=== PATIENT | female | born 1940 | race Caucasian/White ===

== ENCOUNTER 2016-10-18 16:48 | Inpatient (IN) | payer MEDICARE, OTHER ==
[~2016-10-18] VITALS: Ht 160 cm; Wt 76.9 kg
[~2016-10-18 16:48] MED LIST: ALPHAGAN BOTH EYES; AMLO1CAP33 PO; AZOPT 1% BOTH EYES; BENA1TAB13 PO; BRIMONIDINE; EYE BOTH EYES; GLIM4TAB PO; LEVO50TA64 PO; TAFL1DRO RIGHT EYE; TIOT18CA; VENTOLIN
[2016-10-18] MEDS ORDERED: VANCOMYCIN 1 GM (PMX) 250 ML IVPB STA (18:02)
[2016-10-18] MEDS ORDERED: CEFEPIME 1GM/50 ML (PMX) 50 ML IVPB STA (18:02)
--- NOTE | 2016-10-18 18:24 | RADRPT ---
PROCEDURE: XR Chest 1 View. CLINICAL INDICATION: Shortness of breath. TECHNIQUE: AP view of the chest was obtained. COMPARISON: CR CHEST 02/17/2013 FINDINGS: The heart size is within normal limits. Calcified atherosclerosis is noted in the aorta. Elevated l eft hemidiaphragm is identified. Patchy atelectasis versus infiltrates are identified in the left lo wer lobe. Calcified granuloma is seen in the right upper lobe. Osseous structures are intact. IMPRESSION: Calcified atherosclerosis in the aorta. Patchy atelectasis versus infiltrates in the left lower lobe. Elevated left hemidiaphragm. Calcified granuloma in the right upper lobe. RPTAT: AA .Sachin Meyers MD, MD Date Time Electronically viewed and signed by .Sachin Meyers MD, on 10/18/2016 18:24 .P/
[2016-10-18] MEDS ORDERED: BENA1TAB13 PO (18:26)
[2016-10-18] MEDS ORDERED: ATOR40TA68 PO (18:27)
[2016-10-18] MEDS ORDERED: LEVO100T87 PO (18:27)
[2016-10-18] MEDS ORDERED: AMLO2.5T78 PO (18:27)
[2016-10-18 18:30] LABS: BASOPHILS % 0.3 % (0.0-2.0); EOSINOPHILS # 0.1 10^3/ul (0.0-0.5); EOSINOPHILS % 0.4 % (0.0-7.0); HEMATOCRIT 40.7 % (37.0-47.0); HEMOGLOBIN 14.1 g/dl (12.0-16.0); LYMPHOCYTES # 0.6 10^3/ul (0.8-2.9); LYMPHOCYTES % 5.5 % (15.0-51.0); MEAN CORPUSCULAR HEMOGLOBIN 31.5 pg (29.0-33.0); MEAN CORPUSCULAR HGB CONC 34.6 g/dl (32.0-37.0); MEAN CORPUSCULAR VOLUME 91.1 fl (82.0-101.0); MEAN PLATELET VOLUME 9.6 fl (7.4-10.4); MONOCYTE # 0.3 10^3/ul (0.3-0.9); MONOCYTES % 2.2 % (0.0-11.0); PLATELET COUNT 214 10^3/UL (140-415); RED BLOOD COUNT 4.47 10^6/ul (4.20-5.40); RED CELL DISTRIBUTION WIDTH 13.3 % (11.5-14.5); WHITE BLOOD COUNT 11.5 10^3/ul (4.8-10.8)
[2016-10-18] MEDS ORDERED: TIOT18CA INHALATION (18:37)
[2016-10-18] MEDS ORDERED: METF500T4 PO (18:37)
[2016-10-18] MEDS ORDERED: GLIM2TAB PO (18:39)
[2016-10-18] MEDS ORDERED: DAPA5TAB PO (18:40)
[2016-10-18] MEDS ORDERED: ALBU18HF INHALATION (18:41)
[2016-10-18] MEDS ORDERED: TAFL1DRO RIGHT EYE (18:43)
[2016-10-18] MEDS ORDERED: AZOP1OP10 BOTH EYES (18:45)
[2016-10-18 18:49] LABS: CALCIUM 10.3 mg/dl (8.4-10.2); CREATININE 0.74 mg/dl (0.44-1.00); POTASSIUM 5.1 mmol/L (3.5-5.1)
[2016-10-18] MEDS ORDERED: ALBUTEROL 0.083% (NEB) 2.5 MG/3 ML AMP NEB STA (19:44)
[2016-10-18] MEDS ORDERED: IPRATROPIUM (NEB) 0.5 MG/2.5 ML AMP NEB STA (19:44)
--- NOTE | 2016-10-18 20:23 | ERA ---
ER Documentation Chief Complaint Date/Time DATE: 10/18/16 TIME: 20:21 Chief Complaint sob, dx pna send by pmd HPI This a pleasant 75-year-old female has had a cough for 2 weeks she says is dry and getting worse. He has a history of COPD and she states that she had asthma as a child. She states that she had a cold that went into her chest and she is unable to shake it. She says she had occasional chills but no documented fever. She has some wheezing shortness of breath off-and-on for the past 10 days. No substernal chest pain. The patient saw her primary care physician was sent for chest x-ray then called when she got home and was told she had left lower lobe pneumonia need to come the hospital for admission. The patient' s physician had wrote some admitting orders and sent him in. ROS All systems reviewed and are negative except as per history of present illness. Medications Home Meds Reported Medications Brinzolamide (Azopt) 10 Ml Drops.susp, 1 DROP BOTH EYES BID 10/18/16 Tafluprost/Pf (ZIOPTAN 0.0015% EYE DROPS) 1 Each Droperette, 1 EACH RIGHT EYE QHS 10/18/16 Albuterol Sulfate* (Ventolin HFA*) 18 Gm Hfa.aer.ad, 2 PUFF INHALATION Q4H, #1 INHALER 10/18/16 Dapagliflozin Propanediol (Farxiga) 5 Mg Tablet, 5 MG PO DAILY, #30 TAB 10/18/16 Glimepiride* (Glimepiride*) 2 Mg Tablet, 2 MG PO WITH BREAKFAST DINNE, TAB 10/18/16 Tiotropium [place]* (Spiriva*) 18 Mcg Cap.w.dev, 1 CAP INHALATION DAILY, #30 CAP 10/18/16 Metformin Hcl* (Metformin Hcl*) 500 Mg Tablet, 500 MG PO WITH BREAKFAST DINNE, # 60 TAB 10/18/16 Atorvastatin* (Atorvastatin*) 40 Mg Tablet, 40 MG PO QHS, #30 TAB 10/18/16 Levothyroxine Sodium* (Levothyroxine Sodium*) 100 Mcg Tablet, 100 MCG PO BEFORE BREAKFAST, #30 TAB 10/18/16 Amlodipine Besylate* (Amlodipine Besylate*) 2.5 Mg Tablet, 2.5 MG PO DAILY, #30 TAB 10/18/16 Benazepril-Hydrochlorothiazide (Benazepril-Hydrochlorothiazide) 20-12.5 Mg Tablet, 1 TAB PO BID, #30 TAB 10/18/16 Discontinued Reported Medications Tafluprost/Pf (ZIOPTAN 0.0015% EYE DROPS) 1 Each Droperette, 1 EACH RIGHT EYE HS , #1 02/17/13 [alphagan 1%] No Conflict Check, DROP BOTH EYES, #1 02/17/13 Tafluprost/Pf (ZIOPTAN 0.0015% EYE DROPS) 1 Each Droperette, 1 RIGHT EYE HS 02/17/13 [Aphagan] No Conflict Check 02/17/13 [Azopt 1% EYE DROPS] No Conflict Check, 2 BOTH EYES BID 02/17/13 Levothyroxine Sodium (Levothroid) 50 Mcg Tablet, 50 MCG PO DAILY 02/17/13 Amlodipine-Benazepril (Amlodipine-Benazepril) 1 Cap Capsule, 2.5 MG PO DAILY 02/17/13 [Ventolin] No Conflict Check, PRN 02/17/13 Tiotropium [place]* (Spiriva*) 18 Mcg Cap.w.dev, 1 PUFF PRN, 0 Refills 02/17/13 Glimepiride* (Glimepiride*) 4 Mg Tablet, 4 MG PO BID 02/17/13 Benazepril-Hydrochlorothiazide (Benazepril-Hydrochlorothiazide) 1 Each Tablet, PO BID 02/17/13 Allergies Allergies: Coded Allergies: No Known Allergy (Unverified , 10/18/16) PMhx/Soc 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) Anesthesia Reaction: No Hx Neurological Disorder: No Hx Respiratory Disorders: Yes (asthma) Hx Cardiac Disorders: No Hx Psychiatric Problems: No Hx Miscellaneous Medical Probl: Yes (fx leg) Hx Alcohol Use: No Hx Substance Use: No Hx Tobacco Use: Yes (21 yrs ago) Smoking Status: Former smoker FmHx Family History: No coronary disease Physical Exam Vitals Vital Signs Date Time Temp Pulse Resp B/P Pulse Ox O2 Delivery O2 Flow Rate FiO2 10/18/16 20:00 98.9 88 18 119/63 96 Room Air 3.0 10/18/16 19:58 83 20 96 Nasal Cannula 3.0 10/18/16 18:02 Nasal Cannula 3 10/18/16 17:44 99.0 102 20 109/85 94 Room Air 3.0 10/18/16 17:44 Nasal Cannula 3.0 10/18/16 16:54 100.7 110 18 111/59 90 Physical Exam Const: Well-developed, well-nourished Head: Atraumatic, normocephalic Eyes: Normal Conjunctiva, PERRLA, EOMI, normal sclera, no nystagmus ENT: Normal External Ears, Nose and Mouth, moist mucus membranes. Neck: Full range of motion. No meningismus, no lymphadenopathy. Resp: [Decreased breath sounds bilaterally consistent with COPD, left lower lobe has some rhonchi cardio: Regular rate and rhythm, no murmurs, S1 S2 present Abd: Soft, non tender x 4, non distended. Normal bowel sounds, no guarding or rebound, no pulsitile abdominal masses or bruits Skin: No petechiae or rashes, no ecchymosis , no maculopapular rash Back: No midline or flank tenderness Ext: No cyanosis, or edema, FROM x 4, normal inspection, neurovascularly intact x 4 Neur: Awake and alert, STR 5/5 x 4, sensation intact x 4, no focal findings, cerebellum intact Psych: Normal Mood and Affect Result Diagram: 10/18/16180410/18/161804 Results 24 hrs Laboratory Tests Test 10/18/16 18:05 White Blood Count 11.510^3/ul Red Blood Count 4.4710^6/ul Hemoglobin 14.1g/dl Hematocrit 40.7% Mean Corpuscular Volume 91.1fl Mean Corpuscular Hemoglobin 31.5pg Mean Corpuscular Hemoglobin Concent 34.6g/dl Red Cell Distribution Width 13.3% Platelet Count 47977^3/UL Mean Platelet Volume 9.6fl Neutrophils % 91.0% Lymphocytes % 5.5% Monocytes % 2.2% Eosinophils % 0.4% Basophils % 0.3% Nucleated Red Blood Cells % 0.0/100WBC Neutrophils # (Manual) 10.510^3/ul Lymphocytes # 0.610^3/ul Monocytes # 0.310^3/ul Eosinophils # 0.110^3/ul Basophils # 0.010^3/ul Nucleated Red Blood Cells # 0.010^3/ul Sodium Level 138mmol/L Potassium Level 5.1mmol/L Chloride Level 99mmol/L Carbon Dioxide Level 27mmol/L Anion Gap 17 Blood Urea Nitrogen 21mg/dl Creatinine 0.74mg/dl Glucose Level 273mg/dl Calcium Level 10.3mg/dl Current Medications Medications (Trade) Dose Ordered Sig/Lily Route PRN Reason Start Time Stop Time Status Last Admin Dose Admin Cefepime HCl 50 ml @ 100 mls/hr ONCE STAT IVPB 10/18/16 18:02 10/18/16 18:31 DC 10/18/16 18:40 Vancomycin HCl (Vancocin) 250 ml @ 125 mls/hr ONCE STAT IVPB 10/18/16 18:02 10/18/16 20:01 DC 10/18/16 19:21 Albuterol (Proventil 0.083% (Neb)) 7.5 mg ONCE STAT NEB 10/18/16 19:44 10/18/16 19:45 DC 10/18/16 19:58 Ipratropium [place] (Atrovent 0.02% (Neb)) 0.5 mg ONCE STAT NEB 10/18/16 19:44 10/18/16 19:45 DC 10/18/16 19:58 Procedures/MDM PROCEDURE: XR Chest 1 View. CLINICAL INDICATION: Shortness of breath. TECHNIQUE: AP view of the chest was obtained. COMPARISON: CR CHEST 02/17/2013 FINDINGS: The heart size is within normal limits. Calcified atherosclerosis is noted in the aorta. Elevated left hemidiaphragm is identified. Patchy atelectasis versus infiltrates are identified in the left lower lobe. Calcified granuloma is seen in the right upper lobe. Osseous structures are intact. IMPRESSION: Calcified atherosclerosis in the aorta. Patchy atelectasis versus infiltrates in the left lower lobe. Elevated left hemidiaphragm. Calcified granuloma in the right upper lobe. RPTAT: AA .Sachin Meyers MD, Date Time Electronically viewed and signed by .Sachin Meyers MD, on 10/18/2016 18:24 .P/ CC: KACIE FORREST MD Patient had blood cultures IV fluids and given antibiotics cefepime and vancomycin. We will admit to the hospital for IV antibiotics Departure Diagnosis: Primary Impression: Left lower lobe pneumonia Qualified Code: J18.1 - Pneumonia of left lower lobe due to infectious organism Condition: Stable TRAE OLEA DO Oct 18, 2016 20:23
[2016-10-18] MEDS ORDERED: ONDANSETRON 4 MG INJ IV PRN (20:30)
[2016-10-18] MEDS ORDERED: ACETAMINOPHEN 325 MG TAB PO PRN (20:30)
[2016-10-18 21:48] VITALS: TEMP 98.5
[2016-10-18 22:00] VITALS: Ht 160 cm; Wt 76.9 kg
[2016-10-18 22:22] VITALS: PULSE 90
[2016-10-18 23:09] VITALS: BP 120/60; RESP 17
[2016-10-18] MEDS ORDERED: GLUCAGON 1 MG INJ IM PRN (23:45)
[2016-10-18] MEDS ORDERED: DEXTROSE 50% 50 ML SYRINGE IV PRN ×2 (23:45)
[2016-10-18] MEDS ORDERED: GLUCOSE GEL 15 GRAM TUBE PO PRN ×2 (23:45)
[2016-10-18] MEDS ORDERED: GLUCOSE GEL 15 GRAM TUBE BUCCAL PRN (23:45)
[2016-10-19] VITALS (11 sets, daily range): BP systolic 111–165; BP diastolic 58–74; PULSE 66–85; RESP 16–19
[2016-10-19] MEDS ORDERED: MAGNESIUM HYDROXIDE 30ML CUP PO PRN
[2016-10-19] MEDS ORDERED: ZOLPIDEM 5 MG TAB PO PRN
[2016-10-19] MEDS ORDERED: ACETAMINOPHEN 325 MG TAB PO PRN
[2016-10-19] MEDS ORDERED: HYDROCODONE/APAP (5/325) TAB PO PRN (00:30)
[2016-10-19] MEDS ORDERED: GUAIFENESIN/CODEINE 5ML CUP PO PRN (00:30)
[2016-10-19] MEDS ORDERED: ACCU-CHEK XX SCH ×2 (02:00)
[2016-10-19] MEDS: ACCU-CHEK XX SCH ×2 (02:00)
[2016-10-19] MEDS: ALBUTEROL 18 GM INHALER INH SCH ×6 (02:14→21:48)
[2016-10-19] MEDS: LEVOFLOXACIN 500MG/D5W (PMX) 100 ML IVPB SCH (05:41)
[2016-10-19] MEDS: LEVOTHYROXINE 100 MCG TAB PO SCH (06:54)
[2016-10-19 07:40] LABS: BASOPHILS % 0.1 % (0.0-2.0); HEMATOCRIT 38.6 % (37.0-47.0); LYMPHOCYTES # 0.9 10^3/ul (0.8-2.9); LYMPHOCYTES % 9.4 % (15.0-51.0); MEAN CORPUSCULAR HEMOGLOBIN 30.9 pg (29.0-33.0); MEAN CORPUSCULAR HGB CONC 33.7 g/dl (32.0-37.0); MEAN CORPUSCULAR VOLUME 91.7 fl (82.0-101.0); MEAN PLATELET VOLUME 9.5 fl (7.4-10.4); MONOCYTE # 0.4 10^3/ul (0.3-0.9); MONOCYTES % 3.8 % (0.0-11.0); NEUTROPHILS % 85.9 % (39.0-77.0); PLATELET COUNT 207 10^3/UL (140-415); RED BLOOD COUNT 4.21 10^6/ul (4.20-5.40); RED CELL DISTRIBUTION WIDTH 13.2 % (11.5-14.5); WHITE BLOOD COUNT 9.3 10^3/ul (4.8-10.8)
[2016-10-19] MEDS ORDERED: INSULIN ASPART [NOVOLOG] 3 ML PEN SC SCH (08:00)
[2016-10-19] MEDS ORDERED: GLIMEPIRIDE 2 MG TAB PO SCH (08:00)
[2016-10-19 08:09] LABS: ALBUMIN/GLOBULIN RATIO 1.05; BILIRUBIN,INDIRECT 0.3 mg/dl (0-1.1); BILIRUBIN,TOTAL 0.3 mg/dl (0.2-1.3); CALCIUM 10.1 mg/dl (8.4-10.2); CHOL/HDL RATIO 4.3 RATIO; CREATININE 0.57 mg/dl (0.44-1.00); POTASSIUM 4.6 mmol/L (3.5-5.1); TOTAL PROTEIN 7.8 g/dl (6.1-8.1)
[2016-10-19 08:36] LABS: THYROID STIMULATING HORMONE 1.87 MIU/L (0.465-4.680)
[2016-10-19] MEDS: BENAZEPRIL 20 MG TAB PO SCH ×2 (08:47→21:31)
[2016-10-19] MEDS: HYDROCHLOROTHIAZIDE 12.5 MG CAP PO SCH ×2 (08:47→21:32)
[2016-10-19] MEDS: TIOTROPIUM 18 MCG CAPSULE INHA DEV INH SCH (08:48)
[2016-10-19] MEDS: AMLODIPINE 2.5 MG TAB PO SCH (08:48)
[2016-10-19] MEDS: metFORMIN 500 MG TAB PO SCH ×2 (08:49→17:49)
[2016-10-19] MEDS: INSULIN ASPART [NOVOLOG] 3 ML PEN SC SCH ×4 (08:52→21:42)
[2016-10-19] MEDS: BRINZOLAMIDE 1% 10ML OPH BOTH EYES SCH ×2 (09:00→21:34)
[2016-10-19] MEDS ORDERED: NON-FORMULARY/PATIENT OWN MED (Dapagliflozin Propanediol (Farxiga) 5 MG) PO SCH (09:00)
--- NOTE | 2016-10-19 11:42 | RADRPT ---
PROCEDURE: CT Chest without contrast. CLINICAL INDICATION: Pneumonia. Cough. TECHNIQUE: CT scan of the chest without contrast was performed on a multidetector high-resolution CT scanner. Coronal and sagittal reformatted images were obtained from the axial source images. The total exam CTDI equals 13.72 mGy and the total exam DLP equals 570.87 mGy-cm. One or more of the following dose reduction techniques were used: - Automated exposure control. - Adjustment of the mA and/or kV according to patient size. - Use of iterative reconstruction technique. COMPARISON: CT scan chest 02/18/2013; chest x-ray 10/18/2016 FINDINGS: Dense patchy consolidation is seen within the left lower lung consistent with pneumonia. There is as ymmetric elevation of the left hemidiaphragm. No pleural effusion is seen. Minimal scattered inflamm atory bronchiolitis is seen within the superior segment of the left lower lung, and within the left upper lung. Several scattered calcified granulomata are seen within the lungs bilaterally as well. N o soft tissue mass lesion is seen. Linear scarring is seen in the right lung base and right middle l obe. Lung apices are clear. There is no pneumothorax. The central tracheobronchial tree is clear. The mediastinum is unremarkable without lymphadenopathy. Small shoddy sub-centimeter nodes only are seen, not enlarged by size criteria. The vascular structures of the mediastinum are normal in cours e and caliber. Aortic vascular calcifications and coronary artery calcifications are present. The heart size is normal without evidence for pericardial thickening or effusion. The axillary regions, subpectoral regions, and supraclavicular regions are all unremarkable. The antonio rrounding chest wall is unremarkable. Imaging obtained through the upper abdomen reveals no acute a bnormality. There is a small 1.4 cm hypodense nodule within the right adrenal gland consistent with a benign adrenal adenoma. This is stable when compared to the prior study and is benign. The surrou nding osseous structures are remarkable for degenerative enthesopathy of the spine. No osteolytic o r osteoblastic lesion is detected. IMPRESSION: 1. Dense consolidation throughout the left lower lung consistent with pneumonia. 2. Mild inflammatory bronchiolitis within the left upper lung as well. 3. Scattered calcified granulomata within the lungs bilaterally. 4. Vascular calcifications consistent with atherosclerosis. 5. Stable benign right adrenal adenoma. RPTAT: HMJB .Anant Beth MD, MD Date Time Electronically viewed and signed by .Anant Beth MD, MD on 10/19/2016 11:41 .B/
[2016-10-19] MEDS: FARXIGA IS NON FORMULARY ITEM...PLEASE CONSIDER AN ORDER TO USE PATIENT'S OWN MED XX SCH ×2 (13:30→21:30)
[2016-10-19] MEDS: [UNRECOGNIZED DRUG - REMARK] XX SCH ×2 (13:30→21:30)
--- NOTE | 2016-10-19 17:32 | HP ---
Date/Time of Note Date/Time of Note DATE: 10/19/16 TIME: 17:32 Assessment/Plan VTE Prophylaxis VTE Prophylaxis Intervention: ambulation Lines/Catheters IV [facility] Saline Lock Urinary Cath still in place: No Assessment/Plan Problems: (1) COPD exacerbation Status: Acute Comment: Start steroid IV and Xopenex nebulizer. Continue spiriiva and oxygen support for now (2) Diabetes Status: Chronic Comment: continue current oral diabetic medicine. expect worsening of blood sugar with the use of steroids. Add accuchecks and cover with insulin sliding scale (3) Left lower lobe pneumonia Status: Acute Comment: start Levaquin IV. Check blood cultures and sputum cultures. Qualifiers: Pneumonia type: due to unspecified organism Qualified Code: J18.1 - Pneumonia of left lower lobe due to infectious organism HPI/ROS Admit Date/Time Admit Date/Time Oct 18, 2016 at 20:24 Hx of Present Illness 75-year-old female with history of COPD presents with SOB and cough for 3 weeks. it's progressive nature and associated with Mild fever, no chills. PMH/Family/Social Past Medical History Medical History: diabetes, high cholesterol, hypertension, hypothyroid, other Family History Significant Family History: no pertinent family hx Social History Alcohol Use: rarely Smoking Status: Former smoker Exam/Review of Systems Vital Signs Vitals Vital Signs Date Time Temp Pulse Resp B/P Pulse Ox O2 Delivery O2 Flow Rate FiO2 10/19/16 16:27 77 10/19/16 12:15 98.1 19 126/59 94 10/19/16 07:45 Nasal Cannula 3.0 Intake and Output 10/18/16 10/18/16 10/19/16 15:00 23:00 07:00 Intake Total 500 ml Balance 500 ml Exam Constitutional: alert, oriented Head: atraumatic, normocephalic Eyes: nl conjunctiva, nl sclera ENMT: nl external ears & nose Respiratory: congested cough, diminished breath sounds Cardiovascular: nl pulses, regular rate and rhythm Gastrointestinal: nl liver, spleen, non-tender, soft Musculoskeletal: nl extremities to inspection Extremities: normal pulses Lymph: nl lymph nodes Labs Result Diagram: 10/19/16 0714 10/19/16 0714 Medications Medications Current Medications Amlodipine Besylate (Norvasc) 2.5 mg DAILY PO Last administered on 10/19/16 08: 48; Admin Dose 2.5 MG; Start 10/19/16 at 09:00 Atorvastatin Calcium (Lipitor) 40 mg QHS PO ; Start 10/19/16 at 21:00 Brinzolamide (Azopt) 1 drop BID BOTH EYES ; Start 10/19/16 at 09:00 Tiotropium [place] (Spiriva) 1 inh DAILY INH Last administered on 10/19/16 08: 48; Admin Dose 1 INH; Start 10/19/16 at 09:00 Benazepril HCl (Lotensin) 20 mg BID PO Last administered on 10/19/16 08:47; Admin Dose 20 MG; Start 10/19/16 at 09:00 Miscellaneous Information 5 mg DAILY PO ; Start 10/19/16 at 09:00; Status UNV Miscellaneous Information 1 each QHS RIGHT EYE ; Start 10/19/16 at 21:00; Status UNV Miscellaneous Information 1 ea NOTE XX ; Start 10/18/16 at 23:45 Glucose (Glutose) 15 gm Q15M PRN PO DECREASED GLUCOSE; Start 10/18/16 at 23:45 Glucose (Glutose) 22.5 gm Q15M PRN PO DECREASED GLUCOSE; Start 10/18/16 at 23:45 Dextrose (D50w Syringe) 25 ml Q15M PRN IV DECREASED GLUCOSE; Start 10/18/16 at 23:45 Dextrose (D50w Syringe) 50 ml Q15M PRN IV DECREASED GLUCOSE; Start 10/18/16 at 23:45 Glucagon (Glucagen) 1 mg Q15M PRN IM DECREASED GLUCOSE; Start 10/18/16 at 23:45 Glucose (Glutose) 15 gm Q15M PRN BUCCAL DECREASED GLUCOSE; Start 10/18/16 at 23: 45 Diagnostic Test (Pha) (Accu-Chek) 1 ea 02 XX ; Start 10/19/16 at 02:00 Hydrochlorothiazide (Hydrochlorothiazide) 12.5 mg BID PO Last administered on 08:47; Admin Dose 12.5 MG; Start 10/19/16 at 09:00 Diagnostic Test (Pha) (Accu-Chek) 1 ea 02 XX ; Start 10/19/16 at 02:00 Acetaminophen (Tylenol Tab) 650 mg Q4H PRN PO PAIN AND OR ELEVATED TEMP; Start 10/19/16 at 00:00 Magnesium Hydroxide (Milk Of Mag) 30 ml DAILY PRN PO CONSTIPATION; Start at 00:00 Guaifenesin/ Codeine Phosphate (Robitussin Ac Liquid Cup) 5 ml Q4H PRN PO cough ; Start 10/19/16 at 00:30 Acetaminophen/ Hydrocodone Bitart 1 tab 1 tab Q4H PRN PO severe pain; Start 10/19/16 at 00:30 Levofloxacin/ Dextrose (Levaquin 500mg/ D5W 100 ml (Pmx)) 100 ml @ 100 mls/hr Q24H IVPB Last administered on 10/19/16t 05:41; Admin Dose 100 MLS/HR; Start 10/19/16 at 06:00 Miscellaneous Information (*Order Clarification Bulletin) FARXIGA IS NON FORMULARY ITEM...PLE... Q8H XX ; Start 10/19/16 at 13:30 Miscellaneous Information (*Order Clarification Bulletin) ZIOPTAN IS NON FORMULARY ITEM..PLE... Q8H XX ; Start 10/19/16 at 13:30 VITO FOLEY MD Oct 19, 2016 17:32
[2016-10-19] MEDS: LEVALBUTEROL (NEB) 1.25 MG/0.5 ML AMP HHN SCH (19:15)
[2016-10-19] MEDS ORDERED: TAFLUPROST RIGHT EYE SCH (21:00)
[2016-10-19] MEDS: ATORVASTATIN 40 MG TAB PO SCH (21:33)
[2016-10-20] VITALS (9 sets, daily range): BP systolic 99–136; BP diastolic 54–62; PULSE 66–88; RESP 18–20
[2016-10-20] MEDS: LEVALBUTEROL (NEB) 1.25 MG/0.5 ML AMP HHN SCH ×3 (00:28→16:22)
[2016-10-20] MEDS: ALBUTEROL 18 GM INHALER INH SCH ×6 (01:33→20:40)
[2016-10-20] MEDS ORDERED: ACETYLCYSTEINE 20% 4 ML VIAL NEB SCH (02:00)
[2016-10-20] MEDS: ACCU-CHEK XX SCH ×2 (02:00→02:09)
[2016-10-20] MEDS: LEVOFLOXACIN 500MG/D5W (PMX) 100 ML IVPB SCH (05:10)
[2016-10-20] MEDS: [UNRECOGNIZED DRUG - REMARK] XX SCH ×3 (05:23→21:30)
[2016-10-20] MEDS: FARXIGA IS NON FORMULARY ITEM...PLEASE CONSIDER AN ORDER TO USE PATIENT'S OWN MED XX SCH ×3 (05:23→21:30)
[2016-10-20] MEDS: LEVOTHYROXINE 100 MCG TAB PO SCH (08:12)
[2016-10-20] MEDS: INSULIN ASPART [NOVOLOG] 3 ML PEN SC SCH ×4 (08:16→20:47)
[2016-10-20] MEDS: metFORMIN 500 MG TAB PO SCH ×2 (08:51→17:42)
[2016-10-20] MEDS: TIOTROPIUM 18 MCG CAPSULE INHA DEV INH SCH (08:52)
[2016-10-20] MEDS: BRINZOLAMIDE 1% 10ML OPH BOTH EYES SCH ×2 (08:52→20:39)
[2016-10-20] MEDS: BENAZEPRIL 20 MG TAB PO SCH ×2 (08:53→20:42)
[2016-10-20] MEDS: HYDROCHLOROTHIAZIDE 12.5 MG CAP PO SCH ×2 (08:53→20:41)
[2016-10-20] MEDS: AMLODIPINE 2.5 MG TAB PO SCH (08:54)
--- NOTE | 2016-10-20 15:22 | PN ---
Date/Time of Note Date/Time of Note DATE: 10/20/16 TIME: 15:22 Assessment/Plan VTE Prophylaxis VTE Prophylaxis Intervention: ambulation Lines/Catheters [facility] Saline Lock Urinary Cath still in place: No Assessment/Plan Problems: (1) Calcified granuloma of lung Status: Chronic Comment: work up for etiology of granulomas with AFB screen and cocci titers. (2) Left lower lobe pneumonia Status: Acute Comment: Continue IV levaquin. Clinically improved with lower temperature, WBC , and improved oxygenation. Qualifiers: Pneumonia type: due to unspecified organism Qualified Code: J18.1 - Pneumonia of left lower lobe due to infectious organism (3) COPD exacerbation Status: Acute Comment: Continue steroid taper, increase xopenex HHN to qid, add mucomyst and guaifenesin AC . (4) Diabetes Status: Chronic Comment: continue glimepiride, metformin, and ISS since patient will be on steroids. Subjective 24 Hr Interval Summary Free Text/Dictation Patient reports persistent shortness of breath and cough but unable to bring up any sputum. Exam/Review of Systems Vital Signs Vitals Vital Signs Date Time Temp Pulse Resp B/P Pulse Ox O2 Delivery O2 Flow Rate FiO2 10/20/16 12:21 88 10/20/16 11:46 98.5 20 99/54 92 10/20/16 09:33 Nasal Cannula 3.0 Intake and Output 10/19/16 10/19/16 10/20/16 15:00 23:00 07:00 Intake Total 960 ml 100 ml Balance 960 ml 100 ml Exam Constitutional: alert, oriented Eyes: nl conjunctiva, nl sclera Respiratory: congested cough, diminished breath sounds Cardiovascular: regular rate and rhythm Gastrointestinal: soft Extremities: calf tenderness, normal pulses, other, palpable cord, pitting pedal edema, tenderness, No clubbing, No cyanosis, No edema Results Result Diagram: 10/19/16 0714 10/19/1614 Results 24 hrs Laboratory Tests Test 10/19/16 17:18 10/19/16 20:52 10/20/16 08:14 10/20/16 12:04 Bedside Glucose 205 216 160 151 Medications Medications Current Medications Amlodipine Besylate (Norvasc) 2.5 mg DAILY PO Last administered on 10/20/16t 08: 54; Admin Dose 2.5 MG; Start 10/19/16 at 09:00 Atorvastatin Calcium (Lipitor) 40 mg QHS PO Last administered on 10/19/16 21:33 ; Admin Dose 40 MG; Start 10/19/16 at 21:00 Brinzolamide (Azopt) 1 drop BID BOTH EYES Last administered on 10/20/16 08:52; Admin Dose 1 DROP; Start 10/19/16 at 09:00 Tiotropium [place] (Spiriva) 1 inh DAILY INH Last administered on 10/20/16 08: 52; Admin Dose 1 INH; Start 10/19/16 at 09:00 Benazepril HCl (Lotensin) 20 mg BID PO Last administered on 10/20/16 08:53; Admin Dose 20 MG; Start 10/19/16 at 09:00 Miscellaneous Information 5 mg DAILY PO ; Start 10/19/16 at 09:00; Status UNV Miscellaneous Information 1 each QHS RIGHT EYE ; Start 10/19/16 at 21:00; Status UNV Miscellaneous Information 1 ea NOTE XX ; Start 10/18/16 at 23:45 Glucose (Glutose) 15 gm Q15M PRN PO DECREASED GLUCOSE; Start 10/18/16 at 23:45 Glucose (Glutose) 22.5 gm Q15M PRN PO DECREASED GLUCOSE; Start 10/18/16 at 23:45 Dextrose (D50w Syringe) 25 ml Q15M PRN IV DECREASED GLUCOSE; Start 10/18/16 at 23:45 Dextrose (D50w Syringe) 50 ml Q15M PRN IV DECREASED GLUCOSE; Start 10/18/16 at 23:45 Glucagon (Glucagen) 1 mg Q15M PRN IM DECREASED GLUCOSE; Start 10/18/16 at 23:45 Glucose (Glutose) 15 gm Q15M PRN BUCCAL DECREASED GLUCOSE; Start 10/18/16 at 23: 45 Diagnostic Test (Pha) (Accu-Chek) 1 ea 02 XX Last administered on 10/20/16 02: 09; Admin Dose 1 EA; Start 10/19/16 at 02:00 Hydrochlorothiazide (Hydrochlorothiazide) 12.5 mg BID PO Last administered on 08:53; Admin Dose 12.5 MG; Start 10/19/16 at 09:00 Diagnostic Test (Pha) (Accu-Chek) 1 ea 02 XX ; Start 10/19/16 at 02:00 Acetaminophen (Tylenol Tab) 650 mg Q4H PRN PO PAIN AND OR ELEVATED TEMP; Start 10/19/16 at 00:00 Magnesium Hydroxide (Milk Of Mag) 30 ml DAILY PRN PO CONSTIPATION; Start at 00:00 Guaifenesin/ Codeine Phosphate (Robitussin Ac Liquid Cup) 5 ml Q4H PRN PO cough ; Start 10/19/16 at 00:30 Acetaminophen/ Hydrocodone Bitart 1 tab 1 tab Q4H PRN PO severe pain; Start 10/19/16 at 00:30 Levofloxacin/ Dextrose (Levaquin 500mg/ D5W 100 ml (Pmx)) 100 ml @ 100 mls/hr Q24H IVPB Last administered on 10/20/16t 05:10; Admin Dose 100 MLS/HR; Start 10/19/16 at 06:00 Miscellaneous Information (*Order Clarification Bulletin) FARXIGA IS NON FORMULARY ITEM...PLE... Q8H XX ; Start 10/19/16 at 13:30 Miscellaneous Information (*Order Clarification Bulletin) ZIOPTAN IS NON FORMULARY ITEM..PLE... Q8H XX ; Start 10/19/16 at 13:30 Methylprednisolone Sodium Succinate (Solu-Medrol) 80 mg ONCE ONCE IV ; Start at 15:30; Stop 10/20/16 at 15:31 VITO FOLEY MD Oct 20, 2016 15:22
[2016-10-20] MEDS ORDERED: METHYLPREDNISOLONE 125 MG INJ IV ONE (15:30)
[2016-10-20 17:43] LABS: ADD UMIC NO; UR ASCORBIC ACID NEGATIVE (NEGATIVE); UR BILIRUBIN (Dip) NEGATIVE (NEGATIVE); UR BLOOD (Dip) NEGATIVE (NEGATIVE); UR CLARITY CLEAR (CLEAR); UR COLOR YELLOW (YELLOW); UR GLUCOSE (Dip) 3+ mg/dL (NEGATIVE); UR KETONES (Dip) NEGATIVE (NEGATIVE); UR LEUKOCYTE ESTERASE (Dip) NEGATIVE Leu/ul (NEGATIVE); UR NITRITE (Dip) NEGATIVE (NEGATIVE); UR SPECIFIC GRAVITY (Dip) 1.016 (1.003-1.030); UR TOTAL PROTEIN (Dip) NEGATIVE (NEGATIVE); UR UROBILINOGEN (Dip) NEGATIVE (NEGATIVE)
[2016-10-20] MEDS ORDERED: GUAIFENESIN/CODEINE 5ML CUP PO PRN (18:30)
[2016-10-20] MEDS: ATORVASTATIN 40 MG TAB PO SCH (20:41)
[2016-10-21] MEDS: ALBUTEROL 18 GM INHALER INH SCH ×4 (01:00→13:00)
[2016-10-21] MEDS: LEVALBUTEROL (NEB) 1.25 MG/0.5 ML AMP HHN SCH ×3 (01:43→13:45)
[2016-10-21] MEDS: ACETYLCYSTEINE 20% 4 ML VIAL NEB SCH ×3 (01:48→13:44)
[2016-10-21 01:54] VITALS: BP 148/72; RESP 20
[2016-10-21] MEDS: ACCU-CHEK XX SCH (02:00)
[2016-10-21] MEDS ORDERED: INSULIN ASPART [NOVOLOG] 3 ML PEN SC ONE (03:00)
[2016-10-21] MEDS: FARXIGA IS NON FORMULARY ITEM...PLEASE CONSIDER AN ORDER TO USE PATIENT'S OWN MED XX SCH ×2 (05:30→13:30)
[2016-10-21] MEDS: [UNRECOGNIZED DRUG - REMARK] XX SCH ×2 (05:30→13:30)
[2016-10-21] MEDS: LEVOFLOXACIN 500MG/D5W (PMX) 100 ML IVPB SCH (06:06)
[2016-10-21] MEDS: LEVOTHYROXINE 100 MCG TAB PO SCH (06:06)
[2016-10-21 06:35] LABS: BASOPHILS % 0.2 % (0.0-2.0); HEMATOCRIT 37.2 % (37.0-47.0); HEMOGLOBIN 12.5 g/dl (12.0-16.0); LYMPHOCYTES # 0.6 10^3/ul (0.8-2.9); LYMPHOCYTES % 11.2 % (15.0-51.0); MEAN CORPUSCULAR HEMOGLOBIN 30.6 pg (29.0-33.0); MEAN CORPUSCULAR HGB CONC 33.6 g/dl (32.0-37.0); MEAN PLATELET VOLUME 9.6 fl (7.4-10.4); MONOCYTE # 0.2 10^3/ul (0.3-0.9); NEUTROPHILS % 84.9 % (39.0-77.0); PLATELET COUNT 215 10^3/UL (140-415); RED BLOOD COUNT 4.09 10^6/ul (4.20-5.40); RED CELL DISTRIBUTION WIDTH 13.4 % (11.5-14.5); WHITE BLOOD COUNT 5.6 10^3/ul (4.8-10.8)
[2016-10-21 07:09] LABS: ALBUMIN 4.1 g/dl (3.3-4.9); ALBUMIN/GLOBULIN RATIO 1.1; BILIRUBIN,INDIRECT 0.2 mg/dl (0-1.1); BILIRUBIN,TOTAL 0.2 mg/dl (0.2-1.3); CALCIUM 10.2 mg/dl (8.4-10.2); CREATININE 0.66 mg/dl (0.44-1.00); POTASSIUM 4.1 mmol/L (3.5-5.1); TOTAL PROTEIN 7.8 g/dl (6.1-8.1)
[2016-10-21] MEDS: metFORMIN 500 MG TAB PO SCH (07:59)
[2016-10-21] MEDS ORDERED: GLIMEPIRIDE 2 MG TAB PO SCH (08:00)
[2016-10-21 08:02] VITALS: BP 141/71; RESP 18
[2016-10-21] MEDS: INSULIN ASPART [NOVOLOG] 3 ML PEN SC SCH ×2 (08:20→11:58)
[2016-10-21] MEDS: TIOTROPIUM 18 MCG CAPSULE INHA DEV INH SCH (09:24)
[2016-10-21] MEDS: BRINZOLAMIDE 1% 10ML OPH BOTH EYES SCH (09:24)
[2016-10-21] MEDS: BENAZEPRIL 20 MG TAB PO SCH (09:25)
[2016-10-21] MEDS: AMLODIPINE 2.5 MG TAB PO SCH (09:26)
[2016-10-21] MEDS: HYDROCHLOROTHIAZIDE 12.5 MG CAP PO SCH (09:26)
--- NOTE | 2016-10-21 11:14 | RADRPT ---
PROCEDURE: Chest 2 views. CLINICAL INDICATION: Shortness of breath. TECHNIQUE: PA and lateral views of the chest were obtained. COMPARISON: October 18, [address] October 19 20:17 FINDINGS: The heart size is within normal limits. Calcified atherosclerosis is noted in the aorta. Elevated le ft hemidiaphragm is observed. Patchy infiltrates in the left lower lobe are stable, given difference s in technique. Atelectasis is noted at the right lung base. Calcified granulomas in the upper lobes are stable. The osseous structures are stable. IMPRESSION: Calcified atherosclerosis in the aorta. Stable left lower lobe infiltrates. Atelectasis at the right lung base. Calcified granulomatous disease in the upper lobes. RPTAT: AA .Sachin Meyers MD, Date Time Electronically viewed and signed by .Sachin Meyers MD, MD on 10/21/2016 11:14 .P/
[2016-10-21 14:00] VITALS: BP 135/57; RESP 18
[2016-10-21] MEDS ORDERED: LEVO750T25 PO (15:30)
[2016-10-21] MEDS ORDERED: LEVA1.2523 HHN (15:30)
[2016-10-21] MEDS ORDERED: PRED10TA PO (15:33)
--- NOTE | 2016-10-21 16:32 | DS ---
Date/Time of Note Date/Time of Note DATE: 10/21/16 TIME: 16:22 Discharge Summary Admission/Discharge Info Admit Date/Time Oct 18, 2016 at 20:24 Discharge Date/Time October 21, 2016 1620 Discharge Diagnosis 1. Left lower lobe pneumonia 2. COPD exacerbation 3. Diabetes mellitus 4. Hypertension. 5. Hypothyroidism Patient Condition: Fair Hx of Present Illness 75-year-old female with history of COPD presents with SOB and cough for 3 weeks, associated with mild fever, no chills. Chest x-ray and chest CTwas notable for dense left lower lobe consolidation as well as scattered granulomas and left upper lobe bronchiolitis. Patient was hypoxic with oxygen saturation in the upper 80s and lower 90s on room air and patient is admitted for pneumonia and COPD exacerbation Hospital Course The patient was started on Levaquin IV 750 mg daily, Xopenex nebulizing machine 3 times daily and Solu-Medrol. She improved clinically with decreased WBC and fever and improve oxygenation the next day but was still unable to cough and still having marked shortness of breath. We added Mucomyst to her respiratory treatment as well as guaifenesin with codeine and she is feeling much better on the day of discharge with oxygen saturation of 97% on 2 L. Patient's blood sugar was elevated after administration of steroid and require the use of insulin sliding scale to regulate the blood sugar. Patient is discharged home on Levaquin 750 mg p.o. daily, prednisone taper course, Xopenex nebulizing solution and her usual diabetes, hypertension, thyroid medications Home Meds Active Scripts Levofloxacin* (Levaquin*) 750 Mg Tablet, 750 MG PO DAILY for 10 Days, TAB Prov:VITO GROVER MD 10/21/16 Levalbuterol Hcl* (Xopenex*) 1.25 Mg/0.5 Ml Vial.neb, 1.25 MG HHN TID for 30 Days, #90 Prov:VITO GROVER MD 10/21/16 Reported Medications Brinzolamide (Azopt) 10 Ml Drops.susp, 1 DROP BOTH EYES BID 10/18/16 Tafluprost/Pf (ZIOPTAN 0.0015% EYE DROPS) 1 Each Droperette, 1 EACH RIGHT EYE QHS 10/18/16 Albuterol Sulfate* (Ventolin HFA*) 18 Gm Hfa.aer.ad, 2 PUFF INHALATION Q4H, #1 INHALER 10/18/16 Dapagliflozin Propanediol (Farxiga) 5 Mg Tablet, 5 MG PO DAILY, #30 TAB 10/18/16 Glimepiride* (Glimepiride*) 2 Mg Tablet, 2 MG PO WITH BREAKFAST DINNE, TAB 10/18/16 Tiotropium [place]* (Spiriva*) 18 Mcg Cap.w.dev, 1 CAP INHALATION DAILY, #30 CAP 10/18/16 Metformin Hcl* (Metformin Hcl*) 500 Mg Tablet, 500 MG PO WITH BREAKFAST DINNE, # 60 TAB 10/18/16 Atorvastatin* (Atorvastatin*) 40 Mg Tablet, 40 MG PO QHS, #30 TAB 10/18/16 Levothyroxine Sodium* (Levothyroxine Sodium*) 100 Mcg Tablet, 100 MCG PO BEFORE BREAKFAST, #30 TAB 10/18/16 Amlodipine Besylate* (Amlodipine Besylate*) 2.5 Mg Tablet, 2.5 MG PO DAILY, #30 TAB 10/18/16 Benazepril-Hydrochlorothiazide (Benazepril-Hydrochlorothiazide) 20-12.5 Mg Tablet, 1 TAB PO BID, #30 TAB 10/18/16 Discontinued Reported Medications Tafluprost/Pf (ZIOPTAN 0.0015% EYE DROPS) 1 Each Droperette, 1 EACH RIGHT EYE HS , #1 02/17/13 [alphagan 1%] No Conflict Check, DROP BOTH EYES, #1 02/17/13 Tafluprost/Pf (ZIOPTAN 0.0015% EYE DROPS) 1 Each Droperette, 1 RIGHT EYE HS 02/17/13 [Aphagan] No Conflict Check 02/17/13 [Azopt 1% EYE DROPS] No Conflict Check, 2 BOTH EYES BID 02/17/13 Levothyroxine Sodium (Levothroid) 50 Mcg Tablet, 50 MCG PO DAILY 02/17/13 Amlodipine-Benazepril (Amlodipine-Benazepril) 1 Cap Capsule, 2.5 MG PO DAILY 02/17/13 [Ventolin] No Conflict Check, PRN 02/17/13 Tiotropium [place]* (Spiriva*) 18 Mcg Cap.w.dev, 1 PUFF PRN, 0 Refills 02/17/13 Glimepiride* (Glimepiride*) 4 Mg Tablet, 4 MG PO BID 02/17/13 Benazepril-Hydrochlorothiazide (Benazepril-Hydrochlorothiazide) 1 Each Tablet, PO BID 02/17/13 Follow-up Plan Patient has been instructed to follow-up with Dr. Grover in 1-2 weeks Primary Care Provider Vito Grover MD Time spent on discharge: > 30 minutes Pending Labs Laboratory Tests Test 10/20/16 17:35 10/20/16 20:38 10/21/16 02:03 10/21/16 05:25 Bedside Glucose 276mg/dL (70-220) 295mg/dL (70-220) 381mg/dL (70-220) White Blood Count 5.610^3/ul (4.8-10.8) Red Blood Count 4.0910^6/ul (4.20-5.40) Hemoglobin 12.5g/dl (12.0-16.0) Hematocrit 37.2% (37.0-47.0) Mean Corpuscular Volume 91.0fl (82.0-101.0) Mean Corpuscular Hemoglobin 30.6pg (29.0-33.0) Mean Corpuscular Hemoglobin Concent 33.6g/dl (32.0-37.0) Red Cell Distribution Width 13.4% (11.5-14.5) Platelet Count 53942^3/UL (140-415) Mean Platelet Volume 9.6fl (7.4-10.4) Neutrophils % 84.9% (39.0-77.0) Lymphocytes % 11.2% (15.0-51.0) Monocytes % 3.0% (0.0-11.0) Eosinophils % 0.0% (0.0-7.0) Basophils % 0.2% (0.0-2.0) Nucleated Red Blood Cells % 0.0/100WBC (0.0-0.0) Neutrophils # (Manual) 4.810^3/ul (1.7-7.5) Lymphocytes # 0.610^3/ul (0.8-2.9) Monocytes # 0.210^3/ul (0.3-0.9) Eosinophils # 0.010^3/ul (0.0-0.5) Basophils # 0.010^3/ul (0.0-0.1) Nucleated Red Blood Cells # 0.010^3/ul (0.0-0.0) Sodium Level 139mmol/L (135-144) Potassium Level 4.1mmol/L (3.5-5.1) Chloride Level 102mmol/L (97-110) Carbon Dioxide Level 23mmol/L (21-31) Anion Gap 18 (8-16) Blood Urea Nitrogen 36mg/dl (7-20) Creatinine 0.66mg/dl (0.44-1.00) Glucose Level 262mg/dl (70-220) Calcium Level 10.2mg/dl (8.4-10.2) Total Bilirubin 0.2mg/dl (0.2-1.3) Direct Bilirubin 0.00mg/dl (0.00-0.20) Indirect Bilirubin 0.2mg/dl (0-1.1) Aspartate Amino Transf (AST/SGOT) 16IU/L (15-46) Alanine Aminotransferase (ALT/SGPT) 31IU/L (13-69) Alkaline Phosphatase 103IU/L (42-121) Total Protein 7.8g/dl (6.1-8.1) Albumin 4.1g/dl (3.3-4.9) Globulin 3.70g/dl (1.3-3.2) Albumin/Globulin Ratio 1.10 Test 10/21/16 07:57 10/21/16 11:58 Bedside Glucose 242mg/dL (70-220) 134mg/dL (70-220) VITO GROVER MD Oct 21, 2016 16:32
[2016-10-24 14:37] LABS: MICROALBUMIN 1.5 mg/dL
== END 2016-10-21 17:45 | disposition home or self-care (01) | DRG 190 ==
LOC: E/R 16:48 → MS4 20:24 → MS2 10-20 15:10
PROVIDERS: ADMIT Internal Medicine; ATTEND Internal Medicine
DX: J44.0 Chronic obstructive pulmonary disease with (acute) lower respiratory infection (principal); J18.9 Pneumonia, unspecified organism; E11.9 Type 2 diabetes mellitus without complications; J84.10 Pulmonary fibrosis, unspecified; Z87.891 Personal history of nicotine dependence; J44.1 Chronic obstructive pulmonary disease with (acute) exacerbation; I10 Essential (primary) hypertension; E03.9 Hypothyroidism, unspecified
CPT/HCPCS: 36415; 71010; 71020; 71250; 80048; 80053; 80061; 81003; 82043; 82962; 83036; 84443; 85025; 85651; 86635; 87040; 87086; 94640; 94644; 94664; 96374; 96375; J0692; J1815; J1956; J2930; J3370